=== PATIENT | male | born 1970 | race Caucasian/White ===

== ENCOUNTER 2022-02-24 20:02 | Emergency (ER) | payer SELFPAY ==
[~2022-02-24] VITALS: Ht 157.5 cm; Wt 70.3 kg
[2022-02-24 20:12] VITALS: BP_SYST 148
--- NOTE | 2022-02-24 20:12 | NUR ---
Patient to ER CHAIR for evaluation.
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
--- NOTE | 2022-02-24 20:20 | NUR ---
ER Dr. WARNER at bedside examining patient.
[2022-02-24 20:25] VITALS: BP_SYST 148
--- NOTE | 2022-02-24 20:25 | NUR ---
Patient AND LASD given written and verbal discharge instructions and verbalizes understanding. ER MD discussed with patient the results and treatment provided. Patient in stable condition. ID arm band removed. NO RX given. Patient educated on pain management and to follow up with PMD. Pain Scale 0/10 Opportunity for questions provided and answered.
== END 2022-02-24 20:25 ==
LOC: SED 20:02
DX: Z04.1 Encounter for examination and observation following transport accident (principal); V49.49XA Driver injured in collision with other motor vehicles in traffic accident, initial encounter; Y93.89 Activity, other specified; Y92.89 Other specified places as the place of occurrence of the external cause; Y99.8 Other external cause status
CPT/HCPCS: 99283